=== PATIENT | male | born 1990 ===

== ENCOUNTER 2019-06-24 09:10 | Day surgery (SDC) | payer MEDICAID ==
[2019-06-24] MEDS ORDERED: LIDOcaine 2% 5ml jelly ONE (09:29)
== END 2019-06-24 10:29 | disposition home or self-care (01) ==
LOC: WOUND CARE 09:10
PROVIDERS: ATTEND Surgery
DX: T81.31XA Disruption of external operation (surgical) wound, not elsewhere classified, initial encounter (principal); L98.492 Non-pressure chronic ulcer of skin of other sites with fat layer exposed; M06.9 Rheumatoid arthritis, unspecified; Z87.891 Personal history of nicotine dependence; Y83.8 Other surgical procedures as the cause of abnormal reaction of the patient, or of later complication, without mention of misadventure at the time of the procedure; Y92.89 Other specified places as the place of occurrence of the external cause
CPT/HCPCS: 97597; A4663; A6021; A6154; A6212

== ENCOUNTER 2019-06-30 10:11 | Day surgery (SDC) | payer MEDICAID ==
[2019-06-30] MEDS ORDERED: LIDOcaine 2% 5ml jelly ONE (11:27)
== END 2019-06-30 12:05 | disposition home or self-care (01) ==
LOC: WOUND CARE 10:11
PROVIDERS: ATTEND Surgery
DX: T81.31XD Disruption of external operation (surgical) wound, not elsewhere classified, subsequent encounter (principal); L98.492 Non-pressure chronic ulcer of skin of other sites with fat layer exposed; M06.9 Rheumatoid arthritis, unspecified; Z87.891 Personal history of nicotine dependence; Y83.8 Other surgical procedures as the cause of abnormal reaction of the patient, or of later complication, without mention of misadventure at the time of the procedure
CPT/HCPCS: 97597; A4663; A6021; A6154; A6212

== ENCOUNTER 2019-07-14 10:20 | Outpatient (CLI) | payer MEDICAID | END 2019-07-14 12:35 | disposition home or self-care (01) | LOC: WOUND CARE 10:20 → EDSTATUS 10:30 → WOUND CARE 12:35 | PROVIDERS: ATTEND Surgery | DX: T81.31XD Disruption of external operation (surgical) wound, not elsewhere classified, subsequent encounter (principal); L98.492 Non-pressure chronic ulcer of skin of other sites with fat layer exposed; M06.9 Rheumatoid arthritis, unspecified; Z87.891 Personal history of nicotine dependence; Y83.8 Other surgical procedures as the cause of abnormal reaction of the patient, or of later complication, without mention of misadventure at the time of the procedure | CPT/HCPCS: A4663; G0463 ==